=== PATIENT | female | born 1955 | race Two or more races ===

== ENCOUNTER 2025-01-29 17:12 | Emergency (ER) | payer OTHER ==
[~2025-01-29] VITALS: Ht 162.6 cm; Wt 84.0 kg
--- NOTE | 2025-01-29 17:27 | ECG ---
[facility] Test Date: 2025-01-29 Test Time: 17:18:04 Pat Name: JOSE ANTONIO AL Department: ER Room: Gender: F Parts Fabricator: BLAKE : 1955 Requested By: RUSSEL REID Order Number: [id number] Reading MD: Sage Hester Measurements Intervals [place] Rate: 92 P: 0 [place]: 0 QRS: -65 QRSD: 94 T: 122 QT: 358 QTc: 443 Interpretive Statements Atrial fibrillation Left anterior fascicular block Anteroseptal infarct, age indeterminate Lateral leads are also involved Electronically Signed On 02-03-2025 12:08:45 PDT by Sage Hester Please click the below link to view image of tracing.
[2025-01-29 17:39] LABS: Basophils # (auto) 0.1 10 ^3/uL (0-0.2); Basophils % (auto) 0.7 % (0.0-2.0); Eosinophils # (auto) 0.1 10 ^3/uL (0-0.8); Eosinophils % (auto) 0.9 % (0.0-7.0); Hematocrit 41.8 % (36.0-46.0); Hemoglobin 14.5 g/dL (12.2-16.2); Lymphocytes # (auto) 3.2 10 ^3/uL (0.4-5.4); Lymphocytes % (auto) 34.7 % (10.0-50.0); Mean Corpuscular Hemoglobin 30.6 pg (28.0-32.0); Mean Corpuscular Hgb Conc. 34.6 g/dL (32.0-36.0); Mean Corpuscular Volume 88.3 fL (80.0-100.0); Monocytes # (auto) 0.9 10 ^3/uL (0-1.3); Monocytes % (auto) 10.4 % (0.0-12.0); Neutrophils # (auto) 4.9 10 ^3/uL (1.6-8.6); Neutrophils % (auto) 53.3 % (37.0-80.0); Nucleated Red Blood Cells % 0.2 %; Platelet Count (auto) 161 10^3/uL (140-450); Red Blood Cells 4.73 10^6/uL (4.0-5.20); Red Cell Distribution Width 15.3 % (11.8-14.3); White Blood Cell 9.1 10^3/uL (4.4-10.8)
--- NOTE | 2025-01-29 17:42 | ED.PDOC ---
History of Present Illness HPI Comments 69F presents to the Er w/ prior MHx of DM, High Lipids, HTN, Pneumonia; SHx of Bilateral Carpal Tunnel Sx, , Tonsillectomy and the c/c of SOB. Pt reports on having SOB since last Saturday of 01/24/25, with it worsening when walking, and a productive cough. Pt notes that "every 10 feet of walking I feel like Im going to pass out". Denies chills, fever, N/V/D, CP, or other associated symptom's, modifiers, or recent injuries or sick contact at this time. Chief Complaint: Shortness of Breath Time Seen by MD: 17:20 Primary Care Provider: RUTH Reviewed Notes: Nurses Notes, Medications, Allergies Allergies: Coded Allergies: Codeine (Verified Allergy, Unknown, 01/29/25) Sulfa Antibiotics (Verified Allergy, Unknown, 01/29/25) Information Source: Patient Mode of Arrival: Ambulatory Severity: Moderate Timing: Days Duration: Since onset, Days Prehospital treatment: None Past Medical History PAST MEDICAL HISTORY: DM, High Lipids, HTN Past Medical History (Other): Pnemonia Surgical History: , Tonsillectomy Surgical History (Other): Bilateral Carpal Tunnels [employer]NEQUIN MOLD [employer] History: No Pertinent MANNEQUIN MOLD [employer]KER History Family History Family History: Reviewed,noncontributory to illness, Unknown Social History Smoker: Non-Smoker Alcohol: Denies ETOH Use Drugs: Denies Drug Use Lives In: Home Constitutional: denies: chills, diaphoresis, fatigue, fever, malaise, sweats, weakness, others EENTM: denies: blurred vision, double vision, ear bleeding, ear discharge, ear drainage, ear pain, ear ringing, eye pain, eye redness, hearing loss, mouth pain, mouth swelling, nasal discharge, nose bleeding, nose congestion, nose pain, photophobia, tearing, throat pain, throat swelling, voice changes, others Respiratory: reports: shortness of breath, SOB with excertion; denies: cough, hemoptysis, orthopnea, SOB at rest, stridor, wheezing, others Cardiovascular: denies: chest pain, dizzy spells, diaphoresis, Dyspnea on exertion, edema, irregular heart beat, left arm pain, lightheadedness, palpitations, PND, syncope, others Gastrointestinal: denies: abdomen distended, abdominal pain, blood streaked bowels, constipated, diarrhea, dysphagia, difficulty swallowing, hematemesis, melena, nausea, poor appetite, poor fluid intake, rectal bleeding, rectal pain, vomiting, others Genitourinary: denies: abnormal vagina bleeding, burning, dyspareunia, dysuria, flank pain, frequency, hematuria, incontinence, pain, , vagina discharge, urgency, others Neurological: reports: dizziness; denies: fainting, headache, left sided numbness, left sided weakness, numbness, paresthesia, pre-existing deficit, right sided numbness, right sided weakness, seizure, speech problems, tingling, tremors, weakness, others Musculoskeletal: denies: back pain, gout, joint pain, joint swelling, muscle pain, muscle stiffness, neck pain, others Integumetry: denies: bruises, change in color, change in hair/nails, dryness, laceration, lesions, lumps, rash, wounds, others Allergic/Immunocompromised: denies: Difficulty Healing, Frequent Infections, Hives, Itching, others Hematologic/Lymphatic: denies: anemia, blood clots, easy bleeding, easy bruising, swollen glands, others Endocrine: denies: excessive hunger, excessive sweating, excessive thirst, excessive urination, flushing, intolerance to cold, intolerance to heat, unexplained weight gain, unexplained weight loss, others Psychiatric: denies: anxiety, bipolar disorder, depression, hopeless, panic disorder, schizophrenia, sleepless, suicidal, others All Other Systems: Reviewed and Negative Physical Exam General Appearance: Moderate Distress HEENT: Normal ENT Inspection, Pharynx Normal, TMs Normal Neck: Full Range of Motion, Non-Tender, Normal, Normal Inspection Respiratory: Chest Non-Tender, Decreased Breath Sounds, Lungs Clear, No Accessory Muscle Use, Respiratory Distress Cardiovascular: No Edema, No JVD, No Murmur, No Gallop, Normal Peripheral Pulses, Regular Rate/Rhythm Breast Exam: Deferred Gastrointestinal: No Organomegaly, Non Tender, No Pulsatile Mass, Normal Bowel Sounds, Soft Genitalia: Deferred Pelvic: Deferred Rectal: Deferred Extremities: No calf tenderness, Normal capillary refill, Normal inspection, Normal range of motion, Non-tender, No pedal edema Musculoskeletal : Apperance: Normal Neurologic: Alert, valet service attendant II-XII nml as Tested, No Motor Deficits, Normal Affect, Normal Mood, No Sensory Deficits Cerebellar Function: Normal Reflexes: Normal Skin: Dry, Normal Color, Warm Lymphatic: No Adenopathy Was a procedure done? Was a procedure done?: No Differential Dx Considerations may include: PE, ACS, NE X-Ray, Labs, Meds, VS Vital Signs Date Time Temp Pulse Resp B/P (MAP) Pulse Ox O2 Delivery O2 Flow Rate FiO2 01/29/25 20:00 Room Air* 0 21 01/29/25 18:51 78 16 96 Room Air 01/29/25 18:51 98.7 78 16 116/79 (91) 96 98.7 01/29/25 17:32 98.7 79 20 161/90 (113) 94 98.7 01/29/25 17:18 92 Lab Test 01/29/25 20:37 01/29/25 20:05 01/29/25 18:19 01/29/25 17:18 Range/Units Troponin I High Sensitivity 23 23 28 </=34 ng/L POC Glucose 214 H 70-106 mg/dl White Blood Count 9.1 4.4-10.8 10^3/uL Red Blood Count 4.73 4.0-5.20 10^6/uL Hemoglobin 14.5 12.2-16.2 g/dL Hematocrit 41.8 36.0-46.0 % Mean Corpuscular Volume 88.3 80.0-100.0 fL Mean Corpuscular Hemoglobin 30.6 28.0-32.0 pg Mean Corpuscular Hemoglobin Concent 34.6 32.0-36.0 g/dL Red Cell Distribution Width 15.3 H 11.8-14.3 % Platelet Count 161 140-450 10^3/uL Mean Platelet Volume 8.0 6.9-10.8 fL Neutrophils (%) (Auto) 53.3 37.0-80.0 % Lymphocytes (%) (Auto) 34.7 10.0-50.0 % Monocytes (%) (Auto) 10.4 0.0-12.0 % Eosinophils (%) (Auto) 0.9 0.0-7.0 % Basophils (%) (Auto) 0.7 0.0-2.0 % Neutrophils # (Auto) 4.9 1.6-8.6 10 ^3/uL Lymphocytes # (Auto) 3.2 0.4-5.4 10 ^3/uL Monocytes # (Auto) 0.9 0-1.3 10 ^3/uL Eosinophils # (Auto) 0.1 0-0.8 10 ^3/uL Basophils # (Auto) 0.1 0-0.2 10 ^3/uL Nucleated Red Blood Cells 0.2 % D-Dimer, Quantitative 16.19 H 0.0-0.49 mg/L FEU Sodium Level 142 136-145 mmol/L Potassium Level 3.8 3.5-5.1 mmol/L Chloride Level 107 98-107 mmol/L Carbon Dioxide Level 21 20-31 mmol/L Anion Gap 14 5-15 Blood Urea Nitrogen 23 9-23 mg/dL Creatinine 1.27 H 0.550-1.02 mg/dL Glomerular Filtration Rate Calc 45 >90 mL/min BUN/Creatinine Ratio 18.1 10.0-20.0 Serum Glucose 179 H 74-106 mg/dL Calcium Level 9.4 8.7-10.4 mg/dL B-Type Natriuretic Peptide 275.31 0-100 pg/mL Current Medications Medications (Trade) Dose Ordered Sig/[place] Route Start Time Stop Time Status Last Admin Aspirin 162 mg ONCE ONCE PO 01/29/25 17:30 01/29/25 17:31 DC 01/29/25 20:11 IV Hep-Lock was established The patient was given aspirin here in the emergency department's The patient's troponin levels are negative The CBC is within normal limits The chemistry panel is within normal limits except for creatinine of 1.27 The D-dimer is significantly elevated at 16.19 At this time, we suspected that the patient may have a PE. The chest x-ray was done and shows: No sign of any abnormalities We ordered a CAT scan angio of the chest which shows a bilateral PE with a large thrombus At this time the patient is being started on Lovenox We are going to tried to contact the contract management specialist for possible thrombectomy but otherwise we may have to transfer the patient to another facility. This patient is [place] so we are attempting to get the patient transferred The patient will be signed out to Dr. Linder Images Reviewed?: Images reviewed and evaluated by me Time of 1ST Reevaluation: 17:50 Reevaluation 1ST: Unchanged Patient Education/Counseling: Diagnosis, Treatment, Prognosis Family Education/Counseling: No Family Present Departure 1 Departure Time of Disposition: 21:58 Impression: Primary Impression: Acute respiratory distress Additional Impression: Bilateral pulmonary embolism Disposition: ADMITTED INPATIENT Admit to: ICU Condition: Critical Critical Care Note Critical Care Time?: Yes (55 min-critical care time only) Stability Stability form required: Yes Unstable for transfer: ICU, CCU, PCU, AGATHA (Intensive VS monitoring), ED Physician Assesment (Clinical assesment) Heart Score Heart Score: Heart Score Response (Comments) Value History N/A 0 EKG N/A 0 Age N/A 0 Risk Factors N/A 0 Troponin N/A 0 Total 0 I personally scribed for RUSSEL REID MD ([email or web address]) on 01/29/25 at 17:42. Electronically submitted by Lorenzo Miguel ([email or web address]). RUSSEL REID MD January 29, 2025 17:42
[2025-01-29 17:49] LABS: Chloride 107 mmol/L (98-107); Potassium 3.8 mmol/L (3.5-5.1); Sodium 142 mmol/L (136-145)
[2025-01-29 17:50] LABS: Anion Gap 14 (5-15); Carbon Dioxide 21 mmol/L (20-31)
[2025-01-29 17:51] LABS: Calcium 9.4 mg/dL (8.7-10.4)
--- NOTE | 2025-01-29 17:52 | DVH ---
INDICATION: chest pain TECHNIQUE: Frontal view of the chest. COMPARISON: None FINDINGS: . The heart and mediastinal contours are grossly unremarkable. There is uncoiling and atherosclerotic change of the thoracic aorta. There is no evidence of pleural disease. The lungs are clear. The b anup structures of the chest are intact without fracture. IMPRESSION: 1. No evidence of acute disease.
[2025-01-29 17:55] LABS: BUN/Creatinine Ratio 18.1 (10.0-20.0); Blood Urea Nitrogen 23 mg/dL (9-23)
[2025-01-29 18:31] LABS: Glucose 179 mg/dL (74-106)
[2025-01-29] MEDS: ASPirin 81 mg TAB PO ONE (20:11)
[2025-01-29] MEDS: IOHEXOL 350 MG/ML 100ML IJ ONE (21:06)
--- NOTE | 2025-01-29 21:59 | DVH ---
Procedure: CT CT ANGIO CHEST CONTRAST Reason for study/Clinical History: sob Comparison Study: None Exam Date: 01/29/2025 09:00 PM Radiation Dose Information: CT Dose: CTDI volume is 52.27 mGy. Dose-length product is 886.73 mGy*cm Contrast: Type of contrast: Omni 350 Contrast inject: 100 mL Contrast wasted:0 TECHNIQUE: After the uneventful administration of intravenous contrast intravenously, CT imaging was performed through the chest. Coronal and sagittal reformations were performed by the technologist. FINDINGS: Lower Neck: Visualized portions of the thyroid gland are unremarkable. Aorta and Vasculature: Normal caliber of thoracic aorta. Lymph Nodes: No enlarged intrathoracic lymph nodes. Mediastinum: Heart size is normal. There is no pericardial effusion. The esophagus is unremarkable. Lungs: No focal consolidation, pleural effusion or significant pneumothorax. No suspicious pulmonary nodule or mass. Musculoskeletal: No acute osseous abnormality. Upper abdomen: Limited portions of the upper abdomen are unremarkable. IMPRESSION: 1. Large filling defects in the right and left pulmonary arteries. 2. Right heart strain CRITICAL FINDINGS Critical Result: PULMONARY EMBOLI IN THE RIGHT AND LEFT PULMONARY ARTERIES. Findings discussed with RUSSEL Martinez at 01/29/2025 09:46 PM, and acknowledged receipt and underst anding of the findings. HS:Y All CT scans at this medical facility are performed using dose modulation techniques as appropriate t o a performed exam including the following: Automated exposure control was utilized; adjustment of th e MA and/or KV according to patient size; and use of iterative reconstruction technique. Enlargement of the pulmonary artery suggesting pulmonary artery hypertension.
[2025-01-29] MEDS: ENOXAPARIN SOD 100 MG/1 ML SYRINGE SC ONE (22:34)
--- NOTE | 2025-01-29 23:03 | DVH ---
Bilateral lower extremity venous duplex Clinical History: Newly diagnosed PE Comparison: None Technique: Duplex Doppler evaluation of the deep venous systems of both lower extremities from the common femora l veins to the popliteal veins including color Doppler and spectral/pulsed waveform analysis was perf ormed. Findings: RIGHT SIDE: The common femoral vein demonstrates appropriate compressibility and waveform variability. There is compressibility/patency of the great saphenous vein at the proximal thigh. The superficial femoral vein demonstrates appropriate compressibility and waveform variability. The popliteal vein demonstrates appropriate compressibility and waveform variability. There is normal compressibility at the tibioperoneal trunk. LEFT SIDE: The common femoral vein demonstrates appropriate compressibility and waveform variability. There is compressibility/patency of the great saphenous vein at the proximal thigh. The proximal superficial femoral vein demonstrates appropriate compressibility and waveform variabili ty. There is however evidence of thrombus in the mid to distal superficial femoral vein. The popliteal vein demonstrates evidence of thrombus. There is evidence of thrombus in the posterior tibial vein. Impression: Evidence of left leg DVT. No evidence of right leg DVT.
[2025-01-30 03:10] VITALS: BP 116/66; PULSE 73; RESP 17; TEMP 98.3; O2SAT 93
== END 2025-01-30 06:47 | disposition short-term general hospital (02) ==
LOC: ER 17:22
DX: R06.03 Acute respiratory distress (principal); I26.99 Other pulmonary embolism without acute cor pulmonale; E11.9 Type 2 diabetes mellitus without complications; I10 Essential (primary) hypertension; E78.5 Hyperlipidemia, unspecified; Z90.89 Acquired absence of other organs; Z98.890 Other specified postprocedural states; Z88.5 Allergy status to narcotic agent; Z88.2 Allergy status to sulfonamides
CPT/HCPCS: 36415; 71045; 71275; 80048; 82947; 83880; 84484; 85025; 85379; 93005; 93970; 96372; 99285; J1650; Q9967; 82962